=== PATIENT | male | born 1975 | race Caucasian/White ===

== ENCOUNTER → 2017-05-31 | Outpatient (CLI) | payer OTHER ==
--- NOTE | 2017-05-31 07:39 | MR ---
EXAMINATION TYPE: MR shoulder RT wo con DATE OF EXAM: 05/31/2017 7:23 AM COMPARISON: NONE HISTORY: Right shoulder pain TECHNIQUE: Multiplanar, multisequence imaging of the right shoulder is performed without contrast. FINDINGS:The study is limited by motion artifact. There is no evidence of an os acromiale. There is minimal inflammatory change in the right AC joint. There is a downward sloping acromion. There is a 7.6 mm rim rent tear involving the posterior fibers of the supraspinatus tendon. There is no full-thickness tear. There is no muscular retraction. The cartilaginous glenoid labrum is intact. The biceps tendon is normally situated within the biceps tendon groove and inserts normally upon the biceps anchor. IMPRESSION: SMALL RIM RENT TEAR THROUGH THE POSTERIOR FIBERS OF THE SUPRASPINATUS TENDON.
== END ==
LOC: RADMRIMAIN 06:51
PROVIDERS: ATTEND Orthopaedic Surgery
DX: M75.101 Unspecified rotator cuff tear or rupture of right shoulder, not specified as traumatic (principal)

== ENCOUNTER 2021-12-01 11:05 | Emergency (ER) | payer OTHER ==
[2021-12-01 11:09] VITALS: BP 160/109; PULSE 105; RESP 18; TEMP 98.2
[2021-12-01] MEDS ORDERED: KETOROLAC 15 MG/ML 1 ML VIAL IM STA (11:42)
--- NOTE | 2021-12-01 11:42 | ED ---
General Adult HPI - General Chief complaint: Extremity Injury, Upper Stated complaint: IHS-arm pain Time Seen by Provider: 12/01/21 11:20 Source: patient, RN notes reviewed, old records reviewed Mode of arrival: ambulatory Limitations: no limitations - History of Present Illness Initial comments: 46-year-old male presents with complaints of left arm pain after trying to attach bars while working. He states he felt a pop just above his elbow near his bicep. He has since been having difficulty with flexion and extension and decreased strength. He denies any other injuries. He has history of hypertension. -: hour(s) Location: left, upper extremity (elbow) Severity scale (1-10): 3 Quality: other (tingling sharp) Improves with: immobilization Worsens with: movement Associated Symptoms: denies other symptoms Treatments Prior to Arrival: none - Related Data Allergies Allergy/AdvReac Type Severity Reaction Status Date / Time Penicillins Allergy Unknown Verified 12/01/21 11:07 Review of Systems ROS Statement: Those systems with pertinent positive or pertinent negative responses have been documented in the HPI. ROS Other: All systems not noted in ROS Statement are negative. Past Medical History Past Medical History: Hypertension History of Any Multi-Drug Resistant Organisms: None Reported Past Surgical History: Orthopedic Surgery Past Psychological History: No Psychological Hx Reported Smoking Status: Never smoker Past Alcohol Use History: None Reported Past Drug Use History: None Reported General Exam Limitations: no limitations General appearance: alert, in no apparent distress Head exam: Present: atraumatic Eye exam: Present: normal appearance Respiratory exam: Present: normal lung sounds bilaterally. Absent: respiratory distress, accessory muscle use, decreased breath sounds Cardiovascular Exam: Present: tachycardia Left Elbow exam: Present: pain w/ pronation/supination, other (Patient with flexion and extension, obvious asymmetry of the left bicep compared to the right; decreased flexion strength). Absent: full ROM, tenderness, swelling, abrasion, deformity, dislocation, effusion, tenderness over radial head Hand Wrist exam: Present: normal inspection, full ROM. Absent: tenderness Neuro motor exam: Present: wrist extension intact, thumb IP flexion intact, thumb adduction intact, fingers 2-5 abduction intact Neurosensory exam: Present: radial nerve intact, ulnar nerve intact, median nerve intact Vascular: Present: normal capillary refill, radial pulse. Absent: vascular compromise Neurological exam: Present: alert, oriented X3, normal gait Psychiatric exam: Present: normal affect, normal mood Skin exam: Present: warm, dry, intact. Absent: cyanosis, diaphoretic Course Vital Signs 12/01/21 11:07 Temperature 98.2 F Pulse Rate 105 H Respiratory 18 Rate Blood Pressure 160/109 O2 Sat by Pulse 98 Oximetry Medical Decision Making - Medical Decision Making Patient states he was at work when he felt a pop in his left bicep. Patient states he has tingling and difficulty with flexion, extension and rotation. Pain is worse with palpation. This appears to be a biceps tendon tear with asymmetrical movement of the biceps muscle. Patient will be provided a sling directed to take Tylenol Motrin for pain and follow-up with orthopedics next week. Case discussed with Dr. Dunbar who was at bedside to evaluate patient. Disposition Clinical Impression: Biceps tendon tear Disposition: HOME SELF-CARE Condition: Good Instructions (If sedation given, give patient instructions): Tendon Rupture (ED) Additional Instructions: Wear sling and follow-up with orthopedics next week. Tylenol and Motrin for pain. Return to the emergency room with any new or concerning symptoms. Is patient prescribed a controlled substance at d/c from ED?: No Referrals: Nalini Mccartney DO [Primary Care Provider] - 1-2 days Jovani Hernandez DO [Doctor of Osteopathic Medicine] - 1-2 days Time of Disposition: 11:42
== END 2021-12-01 11:47 | disposition home or self-care (01) ==
LOC: EC 11:05
DX: S46.212A Strain of muscle, fascia and tendon of other parts of biceps, left arm, initial encounter (principal); I10 Essential (primary) hypertension; Z88.0 Allergy status to penicillin; X50.0XXA Overexertion from strenuous movement or load, initial encounter
CPT/HCPCS: 99283